=== PATIENT | female | born 1970 | race Two or more races ===

== ENCOUNTER 2022-10-30 11:15 | Emergency (ER) | payer MEDICAID, OTHER ==
[~2022-10-30] VITALS: Ht 154.9 cm; Wt 65.2 kg
[2022-10-30 13:57] VITALS: BP 119/78
[2022-10-30] MEDS ORDERED: ALBU108A5 IN (15:07)
[2022-10-30] MEDS ORDERED: PRED20TA2 PO (15:07)
[2022-10-30] MEDS ORDERED: AZIT250T8 PO (15:07)
[2022-10-30] MEDS ORDERED: PROM1SOL4 PO (15:07)
[2022-10-30] MEDS ORDERED: ALBUTEROL SULF 2.5 MG/0.5ML(0.5%) NEB SOLN NEB ONE (15:15)
[2022-10-30] MEDS ORDERED: ALBUTEROL MEDNEB 2.5 mg/3ml NEB ONE (15:15)
[2022-10-30] MEDS ORDERED: IPRATROPIUM BROM 0.5 MG/2.5ML INH SOL NEB ONE (15:15)
[2022-10-30] MEDS ORDERED: methylPREDNISolone SOD SUCC 125 MG/2 ML VL IM ONE (15:15)
[2022-10-30] MEDS ORDERED: ACETAMINOPHEN 500 MG TAB PO ONE (15:15)
== END 2022-10-30 15:41 | disposition home or self-care (01) ==
LOC: ER 11:15
DX: J06.9 Acute upper respiratory infection, unspecified (principal); Z20.822 Contact with and (suspected) exposure to COVID-19
CPT/HCPCS: 36415; 71045; 87426; 87804; 94640; 96372; 99284; J2930; J7644

== ENCOUNTER 2024-03-03 20:10 | Emergency (ER) | payer MEDICAID ==
[~2024-03-03] VITALS: Ht 154.9 cm; Wt 62.0 kg
[~2024-03-03 20:10] MED LIST: ALBU108A5 IN; AZIT-185 PO; PRED20TA2 PO; PROM1SOL4 PO
[2024-03-03] MEDS: IBUPROFEN 800 MG TAB PO ONE (23:15)
[2024-03-03 23:50] VITALS: BP 112/68; PULSE 69; RESP 16; TEMP 98.5; O2SAT 96
[2024-03-04] MEDS ORDERED: IBUP-1456 PO (01:42)
== END 2024-03-04 02:20 | disposition home or self-care (01) ==
LOC: ER 20:10
DX: S93.402A Sprain of unspecified ligament of left ankle, initial encounter (principal); Z90.49 Acquired absence of other specified parts of digestive tract; Z79.2 Long term (current) use of antibiotics; Z79.1 Long term (current) use of non-steroidal anti-inflammatories (NSAID); Z79.899 Other long term (current) drug therapy; X50.1XXA Overexertion from prolonged static or awkward postures, initial encounter; Y93.89 Activity, other specified; Y92.89 Other specified places as the place of occurrence of the external cause; Y99.8 Other external cause status
CPT/HCPCS: 73610